=== PATIENT | female | born 1940 | race Two or more races ===

== ENCOUNTER 2021-07-13 10:13 | Outpatient (CLI) | payer OTHER | END 2021-07-13 10:21 | disposition home or self-care (01) | LOC: RAD 10:13 | PROVIDERS: ATTEND Specialist | DX: J45.998 Other asthma (principal) ==

== ENCOUNTER 2021-11-25 11:01 | Outpatient (CLI) | payer OTHER | END 2021-11-25 11:03 | disposition home or self-care (01) | LOC: MRI 11:01 | PROVIDERS: ATTEND Neuromusculoskeletal Medicine & OMM | DX: M51.26 Other intervertebral disc displacement, lumbar region (principal); M51.36 Other intervertebral disc degeneration, lumbar region | CPT/HCPCS: 72148 ==

== ENCOUNTER 2022-01-14 09:47 | Emergency (ER) | payer OTHER ==
[~2022-01-14] VITALS: Ht 157.5 cm; Wt 81.6 kg
[2022-01-14] MEDS ORDERED: PANTOPRAZOLE SO20 MG PO (10:13)
[2022-01-14] MEDS ORDERED: SYNTHROID100 MCG PO (10:13)
[2022-01-14] MEDS ORDERED: DITROPAN XL10 MG PO (10:14)
== END 2022-01-14 17:10 | disposition home or self-care (01) ==
LOC: ER 09:47
DX: R42 Dizziness and giddiness (principal); Z88.6 Allergy status to analgesic agent; Z20.822 Contact with and (suspected) exposure to COVID-19

== ENCOUNTER 2022-01-28 08:28 | Outpatient (CLI) | payer OTHER ==
[~2022-01-28 08:28] MED LIST: DITROPAN XL10 MG PO; PANTOPRAZOLE SO20 MG PO; SYNTHROID100 MCG PO
== END 2022-01-28 08:38 | disposition home or self-care (01) ==
LOC: TOM 08:28
PROVIDERS: ATTEND Internal Medicine
DX: R10.9 Unspecified abdominal pain (principal)

== ENCOUNTER 2022-06-14 16:19 | Emergency (ER) | payer OTHER ==
[~2022-06-14] VITALS: Ht 157.5 cm; Wt 86.2 kg
[2022-06-14] MEDS ORDERED: SIMVASTATIN20 MG PO (16:33)
[2022-06-14] MEDS ORDERED: CLOPIDOGREL BIS75 MG PO (16:33)
== END 2022-06-14 19:46 | disposition home or self-care (01) ==
LOC: ER 16:19
DX: J06.9 Acute upper respiratory infection, unspecified (principal); Z88.6 Allergy status to analgesic agent; Z91.041 Radiographic dye allergy status; Z20.822 Contact with and (suspected) exposure to COVID-19

== ENCOUNTER 2022-08-30 10:17 | Outpatient (CLI) | payer OTHER ==
[~2022-08-30 10:17] MED LIST changes: +CLOPIDOGREL BIS75 MG PO; +SIMVASTATIN20 MG PO
== END 2022-08-30 10:22 | disposition home or self-care (01) ==
LOC: RAD 10:17
PROVIDERS: ATTEND Internal Medicine
DX: M54.17 Radiculopathy, lumbosacral region (principal); N18.2 Chronic kidney disease, stage 2 (mild)

== ENCOUNTER 2023-01-17 10:48 | Emergency (ER) | payer OTHER ==
[~2023-01-17] VITALS: Ht 157.5 cm; Wt 83.5 kg
== END 2023-01-17 16:51 | disposition home or self-care (01) ==
LOC: ER 10:49
DX: M77.11 Lateral epicondylitis, right elbow (principal); E78.00 Pure hypercholesterolemia, unspecified; E03.9 Hypothyroidism, unspecified; M19.90 Unspecified osteoarthritis, unspecified site; Z91.041 Radiographic dye allergy status
CPT/HCPCS: 73070; 96372; 99284; J1100

== ENCOUNTER 2023-04-01 09:54 | Outpatient (CLI) | payer OTHER | END 2023-04-01 10:01 | disposition home or self-care (01) | LOC: SONOGRAMA 09:54 | PROVIDERS: ATTEND Physical Medicine & Rehabilitation | DX: M25.511 Pain in right shoulder (principal) ==

== ENCOUNTER 2024-04-01 22:02 | Emergency (ER) | payer OTHER ==
[~2024-04-01] VITALS: Ht 157.5 cm; Wt 79.8 kg
[2024-04-01] MEDS ORDERED: LEVOTHYROXINE112 MCG PO (22:41)
[2024-04-01] MEDS ORDERED: NORTRIPTYLINE H50 MG PO (22:42)
[2024-04-01] MEDS ORDERED: BACLOFEN10 MG PO (23:39)
[2024-04-01] MEDS ORDERED: ACETAMINOPHEN500 M1 PO (23:39)
[2024-04-01] MEDS ORDERED: DEXAMETHASONE SODIUM PHOSPHATE 4 MG/ML VIAL IM ONE (23:45)
[2024-04-01] MEDS ORDERED: ORPHENADRINE CITRATE 30 MG/ML AMPUL IM ONE (23:45)
[2024-04-01] MEDS ORDERED: ACETAMINOPHEN 500 MG GEL..CAP PO ONE ×2 (23:45→23:53)
[2024-04-01] MEDS ORDERED: ORPHENADRINE CITRATE 30 MG/ML AMPUL ONE (23:53)
[2024-04-01] MEDS ORDERED: DEXAMETHASONE SODIUM PHOSPHATE 4 MG/ML VIAL ONE (23:54)
== END 2024-04-02 00:06 | disposition home or self-care (01) ==
LOC: ER 22:04
DX: M62.838 Other muscle spasm (principal); E03.8 Other specified hypothyroidism; Z88.6 Allergy status to analgesic agent; Z91.041 Radiographic dye allergy status
CPT/HCPCS: 96372; 99282; J1100; J2360

== ENCOUNTER 2024-04-17 10:10 | Outpatient (CLI) | payer OTHER ==
[~2024-04-17 10:10] MED LIST changes: +ACETAMINOPHEN500 M1 PO; +BACLOFEN10 MG PO; +LEVOTHYROXINE112 MCG PO; +NORTRIPTYLINE H50 MG PO
== END 2024-04-17 10:11 | disposition home or self-care (01) ==
LOC: NUCLEAR 10:10
PROVIDERS: ATTEND Internal Medicine
DX: I73.9 Peripheral vascular disease, unspecified (principal)

== ENCOUNTER 2024-04-25 08:49 | Outpatient (CLI) | payer OTHER | END 2024-04-25 08:51 | disposition home or self-care (01) | LOC: NUCLEAR 08:49 | PROVIDERS: ATTEND Internal Medicine | DX: I73.9 Peripheral vascular disease, unspecified (principal); I87.2 Venous insufficiency (chronic) (peripheral) ==

== ENCOUNTER 2024-04-26 10:21 | Outpatient (CLI) | payer OTHER | END 2024-04-26 10:22 | disposition home or self-care (01) | LOC: NUCLEAR 10:21 | PROVIDERS: ATTEND Internal Medicine | DX: Z13.820 Encounter for screening for osteoporosis (principal); M81.0 Age-related osteoporosis without current pathological fracture ==

== ENCOUNTER 2024-06-07 10:47 | Outpatient (CLI) | payer OTHER | END 2024-06-07 10:56 | disposition home or self-care (01) | LOC: MRI 10:47 | PROVIDERS: ATTEND Internal Medicine | DX: R47.01 Aphasia (principal) | CPT/HCPCS: 70551 ==

== ENCOUNTER 2024-06-10 07:46 | Emergency (ER) | payer OTHER ==
[~2024-06-10] VITALS: Ht 157.5 cm; Wt 79.8 kg
[2024-06-10] MEDS ORDERED: SYNTHROID50 MCG PO (08:03)
[2024-06-10 09:37] LABS: HEMATOCRIT 35.5 % (36.0-45.00); HEMOGLOBIN 11.9 g/dL (12.0-15.00); MEAN CORPUSCULAR HEMOGLOBIN 29.5 pg (27.00-32.0); MEAN CORPUSCULAR HGB CONC 33.5 g/dl (32.0-36.0); PLATELET COUNT 234 K/uL (150-450); RED BLOOD COUNT 4.04 M/uL (4.00-6.00); RED CELL DISTRIBUTION WIDTH 14.2 % (11.5-14.5)
[2024-06-10 10:11] LABS: ALBUMIN 3.6 gm/dL (3.4-5.0); BILIRUBIN TOTAL 0.4 mg/dL (0.3-1.2); CALCIUM 8.8 mg/dL (8.5-10.1); CREATININE SERUM 0.85 mg/dL (0.55-1.02); GFR 63.56; GLOBULINA 3.4 G/DL (2.4-3.5); POTASSIUM 4.22 mEq/L (3.5-5.1)
== END 2024-06-10 10:45 | disposition home or self-care (01) ==
LOC: ER 07:48
PROVIDERS: General Practice
DX: R53.81 Other malaise (principal); R00.2 Palpitations; R42 Dizziness and giddiness; Z88.6 Allergy status to analgesic agent; Z91.041 Radiographic dye allergy status

== ENCOUNTER 2024-07-26 05:30 | Emergency (ER) | payer OTHER ==
[~2024-07-26] VITALS: Ht 152.4 cm; Wt 81.6 kg
[~2024-07-26 05:30] MED LIST changes: +SYNTHROID50 MCG PO
[2024-07-26] MEDS ORDERED: 0.9 % SODIUM CHLORIDE 500 ML IV ONE (06:30)
[2024-07-26 07:07] LABS: BASO % 0.5 % (0.1-1.2); EOS # 0.18 (0.04-0.54); EOS % 1.8 % (0.7-7.0); HEMATOCRIT 37.7 % (34.1-44.9); HEMOGLOBIN 12.1 g/dL (11.2-15.7); LYMPH # 2.43 (1.18-3.74); LYMPH % 24.7 % (19.3-53.1); MEAN CORPUSCULAR HEMOGLOBIN 28.8 pg (25.6-32.2); MONO # 1.11 (0.24-0.82); MONO % 11.3 % (4.7-12.5); NEUT # 5.96 (1.56-6.13); NEUT % 60.5 % (34.0-71.1); PLATELET COUNT 224 K/uL (163-369); RED CELL DISTRIBUTION WIDTH 13.7 % (11.6-14.4)
[2024-07-26 07:34] LABS: ALBUMIN 3.2 gm/dL (3.4-5.0); BILIRUBIN TOTAL 0.36 mg/dL (0.3-1.2); CALCIUM 8.5 mg/dL (8.5-10.1); CREATININE SERUM 0.74 mg/dL (0.55-1.02); GFR 74.59; GLOBULINA 3.4 G/DL (2.4-3.5); POTASSIUM 4.14 mEq/L (3.5-5.1); TOTAL PROTEIN 6.6 gm/dL (6.4-8.2)
[2024-07-26] MEDS ORDERED: MECLIZINE HCL 25 MG TABLET PO STA (08:09)
[2024-07-26] MEDS ORDERED: MECLIZINE HCL 25 MG TABLET PO ONE (08:17)
[2024-07-26 08:46] LABS: COVID-19 AG NEGATIVE (NEGATIVE)
[2024-07-26 08:47] LABS: INFLUENZA A AG NEGATIVE (NEGATIVE)
[2024-07-26 09:14] LABS: URINE APPEARANCE Clear; URINE BILIRRUBIN Negative (NEGATIVE); URINE BLOOD Negative; URINE COLOR Yellow; URINE GLUCOSE Negative (NEGATIVE); URINE KETONE Negative (NEGATIVE); URINE LEUKOCYTE Small; URINE NITRATE Negative; URINE PROTEIN Negative (NEGATIVE); URINE UROBILINOGEN 0.2 E.U./dl
[2024-07-26 09:16] LABS: URINE BACTERIA 116.1 uL (0.0-1933); URINE EPITHELIAL CELLS 4.7 uL (0.0-38.8); URINE WBC 19.6 uL (0.0-23.2)
== END 2024-07-26 10:36 | disposition home or self-care (01) ==
LOC: ER 05:36
PROVIDERS: General Practice
DX: J06.9 Acute upper respiratory infection, unspecified (principal); R42 Dizziness and giddiness; Z88.6 Allergy status to analgesic agent; Z91.041 Radiographic dye allergy status; Z20.822 Contact with and (suspected) exposure to COVID-19

== ENCOUNTER 2025-01-21 11:14 | Emergency (ER) | payer OTHER ==
[~2025-01-21] VITALS: Ht 157.5 cm; Wt 81.6 kg
[2025-01-21] MEDS ORDERED: ALL DAY ALLERGY10 M3 PO (11:34)
[2025-01-21] MEDS ORDERED: 0.9 % SODIUM CHLORIDE 1,000 ML IV SCH (13:00)
[2025-01-21] MEDS ORDERED: FAMOTIDINE/PF 20 MG in 0.9 % SODIUM CHLORIDE 8 ML IV PUSH ONE (13:00)
[2025-01-21] MEDS ORDERED: MECLIZINE HCL 25 MG TABLET PO ONE (13:00)
[2025-01-21 14:44] LABS: BASO % 0.6 % (0.1-1.2); EOS # 0.19 (0.04-0.54); EOS % 2.1 % (0.7-7.0); LYMPH # 2.60 (1.18-3.74); LYMPH % 29.1 % (19.3-53.1); MEAN PLATELET VOLUME 10.30 fl (9.4-12.4); MONO # 0.70 (0.24-0.82); MONO % 7.8 % (4.7-12.5); NEUT # 5.36 (1.56-6.13); NEUT % 60.0 % (34.0-71.1); RED CELL DISTRIBUTION WIDTH 13.5 % (11.6-14.4)
[2025-01-21 15:04] LABS: ALT/SGPT 32.0 U/L (12-78); AST/SGOT 20.0 U/L (15-37); BILIRUBIN TOTAL 0.34 mg/dL (0.3-1.2); BUN CREA RATIO 30.0 (7.0-25.0); CREATININE SERUM 0.67 mg/dL (0.55-1.02); GFR 83.65; GLOBULINA 3.8 G/DL (2.4-3.5); GLUCOSE FASTING 99.0 mg/dL (65-100); OSMOLALITY SERUM 288.0 MOSM/KG (275-295)
[2025-01-21 15:14] LABS: INR 0.99
== END 2025-01-21 17:51 | disposition home or self-care (01) ==
LOC: ER 11:15
PROVIDERS: General Practice
DX: R55 Syncope and collapse (principal); R53.1 Weakness; R42 Dizziness and giddiness; E03.8 Other specified hypothyroidism; E11.9 Type 2 diabetes mellitus without complications; Z88.6 Allergy status to analgesic agent; Z91.041 Radiographic dye allergy status
CPT/HCPCS: 36415; 70450; 93005; 96365; 96366; 99284; J3490; J7030